=== PATIENT | female | born 1985 | race Caucasian/White ===

== ENCOUNTER → 2016-07-17 | Day surgery (SDC) | payer OTHER ==
[~2016-07-17] VITALS: Ht 170.1 cm; Wt 112.5 kg
[~2016-07-17] MED LIST: CLARITIN-D 12 H1 TAB PO; CLARITIN10 MG PO; FLONASE ALLERG9.9 ML NAS; IBU-8800 MG PO; KEFLEX500 MG PO; LIDEX0.05% T; MEDROL DOSEPAK4 MG PO; NAPROXEN SOD550 MG PO; NKHM; PERCOCET 325 MG1 TA5 PO; PREDNICOT20 MG PO; PREDNISONE10 MG PO; ROBITUSSIN DM 105 ML PO; TOBRADEX 0.1%-0.5 ML OPH; TRAMADOL HCL50 MG PO; ZITHROMAX Z PA250 MG PO; ZYRTEC10 MG PO
--- NOTE | ~2016-07-17 | O ---
[place], [place] OPERATIVE NOTE NAME: RASHMI MOTT UNIT #: [id number] ROOM: DOCTOR: CATRINA GARCÍA MD BIRTHDATE: [birth year] DOS: 07/17/2016 INDICATIONS: A 31-year-old patient who has presented with chief complaint of rectal bleed, undergoing investigation. FAMILY HISTORY: Noncontributory. PAST SURGICAL HISTORY: Tubal ligation. SOCIAL HISTORY: Nonsmoker, nonalcohol consumer. ALLERGIES: To no known medication. PROCEDURE: Today's procedure part of investigation is colonoscopy. PREMEDICATION: Versed and Diprivan. SCOPE: Olympus forward viewing colonoscope 10L video. REPORT: After putting the patient in the left lateral position and after application of lubricant to rectal pouch and digital examination, the scope was introduced. Thereafter, under direct visualization, advanced through the length of colon without difficulty. Base of the cecum explored, appendiceal orifice identified, and ileocecal valve was defined. Scope was gradually withdrawn from ascending, transverse, descending colon. The patient extubated, tolerated the procedure well. IMPRESSION: Normal colonoscopic examination. PLAN: High fiber fruit diet, activity ad iván. Patient was assured of no acute pathology. She can use Preparation H suppositories p.r.n. since her bleeding could have been superficial from rectum and to sooth up the mucosa and prevention of rebleed management. [place], [place] OPERATIVE NOTE NAME: RASHMI MOTT UNIT #: [id number] ROOM: DOCTOR: CATRINA GARCÍA MD BIRTHDATE: [birth year] CATRINA GARCÍA MD CM:OPRECORD:OPERATIVE NOTE [id number] CATRINA GARCÍA MD 07/17/16 1256 interface
[2016-07-17 10:00] VITALS: BP 112/65
[2016-07-17 10:15] VITALS: BP 101/68
[2016-07-17 10:35] VITALS: BP 105/72
== END | disposition home or self-care (01) ==
LOC: SDC 07-10 08:00
DX: K62.5 Hemorrhage of anus and rectum (principal); Z98.51 Tubal ligation status; Z87.891 Personal history of nicotine dependence

== ENCOUNTER 2016-10-07 12:16 | Emergency (ER) | payer OTHER ==
[~2016-10-07] VITALS: Wt 113.4 kg
[2016-10-07] MEDS ORDERED: KEFLEX500 M1 PO (13:09)
== END 2016-10-07 14:01 | disposition home or self-care (01) ==
LOC: ED 12:16
DX: S91.331A Puncture wound without foreign body, right foot, initial encounter (principal); W45.0XXA Nail entering through skin, initial encounter; Y93.89 Activity, other specified; Y92.89 Other specified places as the place of occurrence of the external cause; Y99.8 Other external cause status

== ENCOUNTER 2017-05-22 04:10 | Inpatient (IN) | payer OTHER ==
[~2017-05-22] VITALS: Ht 170.2 cm; Wt 114.8 kg
[2017-05-22] VITALS (11 sets, daily range): BP systolic 99–138; BP diastolic 52–92
--- NOTE | ~2017-05-22 | CON ---
[place], [place] REPORT OF CONSULTATION NAME: RASHMI MOTT [facility] CL[facility] #: [id number] UNIT #: [id number] ROOM: 403 DOCTOR: RAFI CORDERO MD BIRTHDATE: [birth year] DOS: 05/22/2017 REASON FOR CONSULTATION: Chest pain. HISTORY OF PRESENT ILLNESS: The patient is a 32-year-old woman who has never been documented as having coronary artery disease; however, she has had several years of intermittent chest pains. She states that the pains come and go without provocation. They are usually in the left side of her chest. Sometimes taking a deep breath makes them worse. She usually just rests and they go away. At about 2:00 this morning, she awakened from sleep with the pain in her left scapular area that radiated around to her left breast. The pain was severe and the patient was unable to relieve it despite taking a hot shower bath. She did note that the pain was worse when she lay down and felt better when she sat up. On her way to the emergency room, she began having dyspnea and shaking along with some nausea. She felt lightheaded and felt like she might pass out, although she did not lose consciousness. Her first electrocardiogram did show sinus tachycardia and nonspecific ST and T-wave changes. Subsequent electrocardiograms have been normal and serial cardiac biomarkers are normal thus far. The patient states that she has been evaluated for chest pain in the past. She tells me that did an echocardiogram and stress test on her years ago. These were both reportedly normal. Those reports are not currently available to me, however. PAST MEDICAL HISTORY: Includes: 1. Hyperlipidemia. 2. Vitamin D deficiency. 3. History of tubal ligation. MEDICATIONS PRIOR TO ADMISSION: None. ALLERGIES: The patient lists an allergy to TAPE, but states that she has no known drug allergies. REVIEW OF SYSTEMS: The patient denies diplopia, loss of vision. She did feel lightheaded prior to admission, but denied syncope. She denied focal weakness, but stated that her left arm felt "numb." She did have some nausea, but denied vomiting. She did have dyspnea, but denied cough or sputum production. She denied fevers, chills, sweats or recent weight change. She denied orthopnea or PND. She denied hemoptysis or hematemesis. She denied change in bowel or bladder habits and denied bleeding in her urine or bowels. She denied any skin rashes. She states that her ankles are occasionally mildly puffy, but denies sustained pedal edema. She denies any claudications. She denies heat or cold intolerance and denies polyuria or polydipsia. The remainder of the review of systems is negative except as noted above. FAMILY HISTORY: Her mother has diabetes and her father's history is unknown. SOCIAL HISTORY: The patient is a former smoker, but quit in her early 20s. She [place], [place] REPORT OF CONSULTATION NAME: RASHMI MOTT UNIT #: [id number] ROOM: 403 DOCTOR: RAFI CORDERO MD BIRTHDATE: [birth year] states that she "partied" as a teenager, but has not used illegal drugs in many years. She does admit that she is under considerable stress, but did not elaborate. PHYSICAL EXAMINATION: GENERAL: The patient is an overweight white female, awake, alert and oriented. VITAL SIGNS: Pulse is 60 and regular, blood pressure is 110/59, she is afebrile. She weighs 114.8 kg and has a body mass index of 39.7. HEENT: Normocephalic and atraumatic. Extraocular muscles are intact. Sclerae are clear. Pupils equal, round and react to light. The oral mucosa is moist. Tongue is midline. NECK: Supple. She has no jugular distention. Carotids are full without bruits. There are no neck or supraclavicular masses, no thyromegaly. LUNGS: Respirations are unlabored. Her chest is clear to auscultation and percussion. Taking a deep breath does reproduce some of her pains. She does have mild chest wall tenderness especially laterally and anteriorly, but states that this does not actually reproduce her presenting pains. She has no presacral edema. CARDIOVASCULAR: Her heart has a regular rhythm without murmurs, rubs or gallops. The PMI is not displaced. There is no precordial heave, lift or thrill. ABDOMEN: Obese, but otherwise benign, without masses, organomegaly, bruits, tenderness or rebound. EXTREMITIES: Showed no clubbing, cyanosis or edema. Peripheral pulses are easily palpated bilaterally. There were no palpable cords, skin rashes and no Homans sign. LABORATORY DATA: I reviewed her electrocardiograms. The first one did show sinus tachycardia and nonspecific ST and T-wave changes. Subsequent EKGs were normal. Her hemoglobin is 14.4, white count 10,600, platelet count 292,000. Sodium 139, potassium 3.1, chloride 102, CO2 of 24, BUN 17, creatinine 0.79, sugar was 102, magnesium 2.2. Troponin level has been normal times 2. Total cholesterol is 202, triglycerides 139, LDL 125, HDL 49. A serum test was negative. TSH is normal at 1.55. IMPRESSIONS: 1. Precordial chest pain. Thus far, the patient shows no signs of an acute coronary event. Her pains are at least partially reproducible and somewhat pleuritic. They are also positional and that they worsen when she lies down. 2. Abnormal electrocardiogram at presentation, the EKG does show sinus tachycardia and nonspecific ST and T-wave changes. The patient did also admit to symptoms at that time consistent with hyperventilation, so this may be the cause for the EKG changes. Ischemia has not been ruled out, but seems less likely. 3. Obesity. 4. Mixed hyperlipidemia. PLAN: The patient will be observed in the hospital today. We will complete her series of cardiac troponin measurements. An echocardiogram will be obtained to look for wall motion abnormalities and pericarditis. If that is all normal, [place], [place] REPORT OF CONSULTATION NAME: RASHMI MOTT UNIT #: [id number] ROOM: 403 DOCTOR: RAFI CORDERO MD BIRTHDATE: [birth year] then an exercise myocardial perfusion study will be done within the next 24 hours. I thank the hospitalist physicians for asking our advice regarding her care. RAFI CORDERO MD CM:CONSTR:REPORT OF CONSULTATION 0849 05/22/17 0913 interface
[~2017-05-22 04:10] MED LIST changes: +KEFLEX500 M1 PO
[2017-05-22 04:26] LABS: BASO # 0.1 10*3/uL (0.0-0.1); BASO % 0.7 % (0.0-1.0); EOS # 0.2 10*3/uL (0.0-0.4); EOS % 2.3 % (1.0-4.0); HEMATOCRIT 42.8 % (37.0-47.0); HEMOGLOBIN 14.4 g/dl (12.0-16.0); LYMPH # 4.2 10*3/uL (1.3-4.4); LYMPH % 39.5 % (27.0-41.0); MEAN CELL VOLUME 92.6 fl (81.0-99.0); MEAN CORPUSCULAR HGB 31.2 pg (27.0-31.0); MEAN CORPUSCULAR HGB CONC 33.6 g/dl (33.0-37.0); MEAN PLATELET VOLUME 9.1 fl (9.6-12.3); MONO # 0.9 10*3/uL (0.1-1.0); MONO % 8.6 % (3.0-9.0); NEUT # 5.1 10*3/uL (2.3-7.9); NEUT % 48.3 % (47.0-73.0); PLATELET COUNT AUTOMATED 292 10*3/uL (130-400); RED BLOOD COUNT 4.62 10*6/uL (4.10-5.10); RED CELL DISTRI WIDTH 11.7 % (0-14.5); WHITE BLOOD COUNT 10.6 10*3/uL (4.8-10.8)
[2017-05-22 04:38] LABS: ACT PARTIAL THROMBO TIME 25.8 SECONDS (20.8-31.5)
[2017-05-22 04:42] LABS: ALBUMIN 3.9 gm/dl (3.1-4.5); ALKALINE PHOSPHATASE 80 U/L (45-117); BUN 17 mg/dl (7-24); CHLORIDE 102 mmol/L (98-107); CREATININE 0.79 mg/dL (0.55-1.02); POTASSIUM 3.1 mmol/L (3.5-5.1); SGOT/AST 14 IU/L (3-35); SGPT/ALT 16 U/L (12-78); SODIUM 139 mmol/L (136-145); TOTAL PROTEIN 7.4 gm/dL (6.4-8.2)
[2017-05-22 04:45] LABS: TROPONIN I < 0.015 ng/ml (<0.045)
[2017-05-22 08:09] LABS: FREE T4 1.3 ng/dl (0.76-1.46); PHOSPHOROUS 3.1 mg/dL (2.5-4.9); THYROID STIM HORMONE (HS) 1.55 uIU/ml (0.358-4.75)
[2017-05-22 09:24] LABS: VITAMIN D, 25-HYDROXY 10.9 ng/mL (30-100)
[2017-05-22 10:33] LABS: BASO # 0.1 10*3/uL (0.0-0.1); EOS # 0.2 10*3/uL (0.0-0.4); EOS % 2.4 % (1.0-4.0); HEMATOCRIT 42.9 % (37.0-47.0); HEMOGLOBIN 14.5 g/dl (12.0-16.0); LYMPH # 2.5 10*3/uL (1.3-4.4); LYMPH % 31.8 % (27.0-41.0); MEAN CELL VOLUME 93.3 fl (81.0-99.0); MEAN CORPUSCULAR HGB 31.5 pg (27.0-31.0); MEAN CORPUSCULAR HGB CONC 33.8 g/dl (33.0-37.0); MEAN PLATELET VOLUME 9.6 fl (9.6-12.3); MONO # 0.6 10*3/uL (0.1-1.0); MONO % 7.9 % (3.0-9.0); NEUT # 4.5 10*3/uL (2.3-7.9); NEUT % 56.1 % (47.0-73.0); PLATELET COUNT AUTOMATED 300 10*3/uL (130-400); RED CELL DISTRI WIDTH 11.6 % (0-14.5); WHITE BLOOD COUNT 7.9 10*3/uL (4.8-10.8)
[2017-05-22 11:00] LABS: BUN 12 mg/dl (7-24); CHLORIDE 108 mmol/L (98-107); CREATININE 0.77 mg/dL (0.55-1.02); SODIUM 142 mmol/L (136-145)
[2017-05-22 11:01] LABS: POTASSIUM 4.1 mmol/L (3.5-5.1)
[2017-05-23] VITALS: BP 102/50
[2017-05-23 07:03] LABS: BASO # 0.1 10*3/uL (0.0-0.1); BASO % 0.9 % (0.0-1.0); EOS # 0.2 10*3/uL (0.0-0.4); EOS % 2.4 % (1.0-4.0); HEMATOCRIT 41.3 % (37.0-47.0); HEMOGLOBIN 13.7 g/dl (12.0-16.0); LYMPH # 2.6 10*3/uL (1.3-4.4); LYMPH % 37.1 % (27.0-41.0); MEAN CELL VOLUME 95.4 fl (81.0-99.0); MEAN CORPUSCULAR HGB 31.6 pg (27.0-31.0); MEAN CORPUSCULAR HGB CONC 33.2 g/dl (33.0-37.0); MEAN PLATELET VOLUME 9.4 fl (9.6-12.3); MONO # 0.6 10*3/uL (0.1-1.0); MONO % 8.7 % (3.0-9.0); NEUT # 3.5 10*3/uL (2.3-7.9); PLATELET COUNT AUTOMATED 272 10*3/uL (130-400); RED BLOOD COUNT 4.33 10*6/uL (4.10-5.10); RED CELL DISTRI WIDTH 11.8 % (0-14.5)
[2017-05-23 07:28] LABS: CHLORIDE 104 mmol/L (98-107); POTASSIUM 4.2 mmol/L (3.5-5.1); SODIUM 139 mmol/L (136-145)
[2017-05-23 07:37] LABS: BUN 16 mg/dl (7-24); CREATININE 0.76 mg/dL (0.55-1.02)
[2017-05-23 08:00] VITALS: BP 94/51
[2017-05-23 08:17] LABS: BILIRUBIN NEGATIVE (NEGATIVE); BLOOD NEGATIVE (NEGATIVE); CLARITY CLEAR (CLEAR); COLOR YELLOW (YELLOW); GLUCOSE NEGATIVE (NEGATIVE); KETONE NEGATIVE (NEGATIVE); LEUKO ESTERASE NEGATIVE (NEGATIVE); NITRITE NEGATIVE (NEGATIVE); PH 5.5 (5.0-9.0); SPECIFIC GRAVITY 1.025 (1.005-1.030); UROBILINOGEN 0.2 E.U./dl (0.2-1.0)
[2017-05-23] MEDS ORDERED: VITAMIN D50000 UNIT PO (14:59)
== END 2017-05-23 16:07 | disposition home or self-care (01) | DRG 313 ==
LOC: ED 04:10 → EDHOLD 05:08 → 4E 05:08
PROVIDERS: Internal Medicine; Internal Medicine Nephrology; Student in an Organized Health Care Education/Training Program
PROC: 4A02XM4 Measurement of Cardiac Total Activity, External Approach (ICD-10-PCS; principal; 2017-05-23)
DX: R07.89 Other chest pain (principal); R65.10 Systemic inflammatory response syndrome (SIRS) of non-infectious origin without acute organ dysfunction; E83.41 Hypermagnesemia; M94.0 Chondrocostal junction syndrome [Tietze]; E87.6 Hypokalemia; E78.00 Pure hypercholesterolemia, unspecified; E55.9 Vitamin D deficiency, unspecified; K64.9 Unspecified hemorrhoids; E66.9 Obesity, unspecified; E78.2 Mixed hyperlipidemia; R73.9 Hyperglycemia, unspecified; R39.15 Urgency of urination; Z88.8 Allergy status to other drugs, medicaments and biological substances; Z79.899 Other long term (current) drug therapy; Z87.891 Personal history of nicotine dependence; Z98.51 Tubal ligation status; Z83.3 Family history of diabetes mellitus; Z68.39 Body mass index [BMI] 39.0-39.9, adult

== ENCOUNTER → 2017-08-20 | Outpatient (CLI) | payer OTHER ==
[~2017-08-20] MED LIST changes: +VITAMIN D50000 UNIT PO
== END | disposition home or self-care (01) ==
LOC: MAMMO 11:30
DX: N63.20 Unspecified lump in the left breast, unspecified quadrant (principal); N64.4 Mastodynia

== ENCOUNTER → 2017-09-02 | Outpatient (CLI) | payer OTHER | END | disposition home or self-care (01) | LOC: US 08-29 10:30 | DX: N63.20 Unspecified lump in the left breast, unspecified quadrant (principal); N64.4 Mastodynia ==

== ENCOUNTER 2018-10-27 14:18 | Emergency (ER) | payer OTHER ==
[~2018-10-27] VITALS: Ht 170.1 cm; Wt 119.3 kg
--- NOTE | ~2018-10-27 | EKG ---
[place], [place] ELECTROCARDIOGRAM REPORT NAME: RASHMI MOTT UNIT #: [id number] ROOM: DOCTOR: EPIPHANY DRAFT REPORT BIRTHDATE: [birth year] [facility] Test Date: 2018-10-27 Test Time: 16:54:56 Pat Name: RASHMI MOTT Department: ED Room: 20 Gender: F [place] Magistrate: Noemy Smith : 1985 Requested By: HENRIETTA PRESSLEY Order Number: [id number] Reading MD: Suman Patel MD Measurements Intervals [place] Rate: 65 P: 3 ID: 179 QRS: 37 QRSD: 99 T: 0 QT: 412 QTc: 429 Interpretive Statements Sinus rhythm Nonspecific T wave changes Electronically Signed On 10-28-2018 8:00:11 PDT by Suman Patel MD CM:EKGRPT:ELECTROCARDIOGRAM REPORT [id number] HENRIETTA LAWSON DRAFT REPORT HENRIETTA PRESSLEY DO
--- NOTE | ~2018-10-27 | EKG ---
[place], [place] ELECTROCARDIOGRAM REPORT NAME: RASHMI MOTT UNIT #: [id number] ROOM: DOCTOR: SUSHIL DRAFT REPORT BIRTHDATE: [birth year] [facility] Test Date: 2018-10-27 Test Time: 14:31:08 Pat Name: RASHMI MOTT Department: Room: Gender: F Fleecer: : 1985 Requested By: HENRIETTA PRESSLEY Order Number: [id number] Reading MD: Suman Patel MD Measurements Intervals [place] Rate: 73 P: 36 KS: 166 QRS: 51 QRSD: 98 T: -5 QT: 389 QTc: 429 Interpretive Statements Sinus rhythm Borderline T wave abnormalities Electronically Signed On 10-28-2018 5:06:51 PDT by Suman Patel MD CM:EKGRPT:ELECTROCARDIOGRAM REPORT [id number] HENRIETTA LAWSON DRAFT REPORT HENRIETTA PRESSLEY DO
[2018-10-27 14:51] LABS: BASO # 0.1 10*3/uL (0.0-0.1); BASO % 0.8 % (0.0-1.0); EOS # 0.2 10*3/uL (0.0-0.4); HEMATOCRIT 39.8 % (37.0-47.0); HEMOGLOBIN 13.5 g/dl (12.0-16.0); LYMPH % 30.2 % (27.0-41.0); MEAN CELL VOLUME 95.2 fl (81.0-99.0); MEAN CORPUSCULAR HGB 32.3 pg (27.0-31.0); MEAN CORPUSCULAR HGB CONC 33.9 g/dl (33.0-37.0); MEAN PLATELET VOLUME 9.3 fl (9.6-12.3); MONO # 0.8 10*3/uL (0.1-1.0); MONO % 8.2 % (3.0-9.0); NEUT # 5.7 10*3/uL (2.3-7.9); NEUT % 57.6 % (47.0-73.0); PLATELET COUNT AUTOMATED 322 10*3/uL (130-400); RED BLOOD COUNT 4.18 10*6/uL (4.10-5.10); RED CELL DISTRI WIDTH 11.8 % (0-14.5); WHITE BLOOD COUNT 9.9 10*3/uL (4.8-10.8)
[2018-10-27 15:06] LABS: ALBUMIN 3.8 gm/dl (3.1-4.5); ALKALINE PHOSPHATASE 77 U/L (45-117); BUN 11 mg/dl (7-24); CHLORIDE 106 mmol/L (98-107); CREATININE 0.77 mg/dL (0.55-1.02); POTASSIUM 3.8 mmol/L (3.5-5.1); SGOT/AST 14 IU/L (3-35); SGPT/ALT 27 U/L (12-78); SODIUM 139 mmol/L (136-145); TOTAL PROTEIN 7.3 gm/dL (6.4-8.2)
[2018-10-27 15:11] LABS: TROPONIN I < 0.015 ng/ml (<0.045)
[2018-10-27 15:31] LABS: ACT PARTIAL THROMBO TIME 25.8 SECONDS (20.0-32.1); INTERNATIONAL NORM RATIO 0.9 (2.0-3.5)
== END 2018-10-27 18:31 | disposition home or self-care (01) ==
LOC: ED 14:18
PROVIDERS: Emergency Medicine
DX: R07.1 Chest pain on breathing (principal); R51 Headache; E66.9 Obesity, unspecified; Z91.048 Other nonmedicinal substance allergy status; Z68.30 Body mass index [BMI] 30.0-30.9, adult; Z79.899 Other long term (current) drug therapy; Z87.891 Personal history of nicotine dependence

== ENCOUNTER 2019-03-07 17:13 | Emergency (ER) | payer OTHER ==
[~2019-03-07] VITALS: Ht 170.1 cm; Wt 117.9 kg
[2019-03-07 18:00] LABS: BASO # 0.1 10*3/uL (0.0-0.1); BASO % 0.7 % (0.0-1.0); EOS # 0.2 10*3/uL (0.0-0.4); EOS % 1.9 % (1.0-4.0); HEMATOCRIT 44.1 % (37.0-47.0); HEMOGLOBIN 14.8 g/dl (12.0-16.0); LYMPH # 3.1 10*3/uL (1.3-4.4); LYMPH % 29.5 % (27.0-41.0); MEAN CELL VOLUME 95.7 fl (81.0-99.0); MEAN CORPUSCULAR HGB 32.1 pg (27.0-31.0); MEAN CORPUSCULAR HGB CONC 33.6 g/dl (33.0-37.0); MEAN PLATELET VOLUME 9.2 fl (9.6-12.3); MONO # 0.8 10*3/uL (0.1-1.0); MONO % 7.5 % (3.0-9.0); NEUT # 6.3 10*3/uL (2.3-7.9); NEUT % 59.6 % (47.0-73.0); PLATELET COUNT AUTOMATED 325 10*3/uL (130-400); RED BLOOD COUNT 4.61 10*6/uL (4.10-5.10); RED CELL DISTRI WIDTH 11.8 % (0-14.5); WHITE BLOOD COUNT 10.6 10*3/uL (4.8-10.8)
[2019-03-07 18:16] LABS: ALKALINE PHOSPHATASE 80 U/L (45-117); BUN 16 mg/dl (7-24); CHLORIDE 106 mmol/L (98-107); CREATININE 0.87 mg/dL (0.55-1.02); LIPASE 102 U/L (73-393); POTASSIUM 3.6 mmol/L (3.5-5.1); SGOT/AST 17 IU/L (3-35); SGPT/ALT 26 U/L (12-78); SODIUM 142 mmol/L (136-145); TOTAL PROTEIN 7.8 gm/dL (6.4-8.2)
[2019-03-07 18:17] LABS: TROPONIN I < 0.015 ng/ml (<0.045)
[2019-03-07 18:54] LABS: BILIRUBIN NEGATIVE (NEGATIVE); BLOOD NEGATIVE (NEGATIVE); CLARITY CLEAR (CLEAR); COLOR YELLOW (YELLOW); GLUCOSE NEGATIVE (NEGATIVE); KETONE NEGATIVE (NEGATIVE); LEUKO ESTERASE NEGATIVE (NEGATIVE); NITRITE NEGATIVE (NEGATIVE); PH 6.5 (5.0-9.0)
[2019-03-07] MEDS ORDERED: ROBAXIN-750750 MG PO (19:06)
[2019-03-07] MEDS ORDERED: MEDROL DOSEPAK4 MG PO (19:06)
== END 2019-03-07 19:09 | disposition home or self-care (01) ==
LOC: ED 17:13
PROVIDERS: Physician Assistant
DX: R10.11 Right upper quadrant pain (principal); M54.6 Pain in thoracic spine; G89.29 Other chronic pain; R35.0 Frequency of micturition; K21.9 Gastro-esophageal reflux disease without esophagitis; Z91.048 Other nonmedicinal substance allergy status; Z87.891 Personal history of nicotine dependence

== ENCOUNTER 2019-05-21 20:48 | Emergency (ER) | payer OTHER ==
[~2019-05-21] VITALS: Ht 170.1 cm; Wt 120.2 kg
[~2019-05-21 20:48] MED LIST changes: +ROBAXIN-750750 MG PO
[2019-05-21 21:59] LABS: BASO # 0.1 10*3/uL (0.0-0.1); BASO % 0.7 % (0.0-1.0); EOS # 0.2 10*3/uL (0.0-0.4); EOS % 2.2 % (1.0-4.0); HEMATOCRIT 38.6 % (37.0-47.0); HEMOGLOBIN 12.6 g/dl (12.0-16.0); LYMPH % 37.2 % (27.0-41.0); MEAN CORPUSCULAR HGB 31.7 pg (27.0-31.0); MEAN CORPUSCULAR HGB CONC 32.6 g/dl (33.0-37.0); MEAN PLATELET VOLUME 9.2 fl (9.6-12.3); MONO # 0.9 10*3/uL (0.1-1.0); MONO % 8.7 % (3.0-9.0); NEUT # 5.4 10*3/uL (2.3-7.9); NEUT % 50.4 % (47.0-73.0); PLATELET COUNT AUTOMATED 282 10*3/uL (130-400); RED BLOOD COUNT 3.98 10*6/uL (4.10-5.10); RED CELL DISTRI WIDTH 11.7 % (0-14.5); WHITE BLOOD COUNT 10.6 10*3/uL (4.8-10.8)
[2019-05-21 22:16] LABS: ALBUMIN 3.3 gm/dl (3.1-4.5); ALKALINE PHOSPHATASE 70 U/L (45-117); BUN 16 mg/dl (7-24); CHLORIDE 109 mmol/L (98-107); CREATININE 0.72 mg/dL (0.55-1.02); POTASSIUM 3.8 mmol/L (3.5-5.1); SGOT/AST 11 IU/L (3-35); SGPT/ALT 17 U/L (12-78); SODIUM 139 mmol/L (136-145); TOTAL PROTEIN 6.4 gm/dL (6.4-8.2)
[2019-05-21 22:18] LABS: B-hCG (QUALITATIVE) NEGATIVE (NEGATIVE)
[2019-05-21 22:38] LABS: BILIRUBIN NEGATIVE (NEGATIVE); BLOOD 2+ (NEGATIVE); CLARITY CLEAR (CLEAR); COLOR YELLOW (YELLOW); GLUCOSE NEGATIVE (NEGATIVE); KETONE NEGATIVE (NEGATIVE); NITRITE NEGATIVE (NEGATIVE); PH 6.5 (5.0-9.0); UROBILINOGEN 0.2 E.U./dl (0.2-1.0)
[2019-05-21 22:39] LABS: LEUKO ESTERASE NEGATIVE (NEGATIVE)
[2019-05-21 22:44] LABS: BACTERIA 1+; RBC 16-20 rbc/hpf (0-2)
[2019-05-21] MEDS ORDERED: KEFLEX500 M1 PO (23:19)
== END 2019-05-21 23:16 | disposition home or self-care (01) ==
LOC: ED 20:48
PROVIDERS: Nurse Practitioner
DX: N92.0 Excessive and frequent menstruation with regular cycle (principal); N39.0 Urinary tract infection, site not specified; Z88.8 Allergy status to other drugs, medicaments and biological substances; Z79.899 Other long term (current) drug therapy

== ENCOUNTER 2020-03-06 18:38 | Emergency (ER) | payer OTHER ==
[~2020-03-06] VITALS: Wt 127.0 kg
[2020-03-06 21:35] LABS: BASO # 0.1 10*3/uL (0.0-0.1); BASO % 0.7 % (0.0-1.0); EOS # 0.2 10*3/uL (0.0-0.4); EOS % 2.1 % (1.0-4.0); HEMATOCRIT 40.6 % (37.0-47.0); LYMPH # 3.2 10*3/uL (1.3-4.4); LYMPH % 28.5 % (27.0-41.0); MEAN CELL VOLUME 94.4 fl (81.0-99.0); MEAN CORPUSCULAR HGB 30.5 pg (27.0-31.0); MEAN CORPUSCULAR HGB CONC 32.3 g/dl (33.0-37.0); MEAN PLATELET VOLUME 9.3 fl (9.6-12.3); MONO # 0.8 10*3/uL (0.1-1.0); MONO % 6.8 % (3.0-9.0); NEUT # 6.8 10*3/uL (2.3-7.9); PLATELET COUNT AUTOMATED 329 10*3/uL (130-400); RED CELL DISTRI WIDTH 11.8 % (0-14.5); WHITE BLOOD COUNT 11.1 10*3/uL (4.8-10.8)
[2020-03-06 21:51] LABS: ALBUMIN 3.5 gm/dl (3.1-4.5); ALKALINE PHOSPHATASE 89 U/L (45-117); BUN 15 mg/dl (7-24); CHLORIDE 107 mmol/L (98-107); CREATININE 0.92 mg/dL (0.55-1.02); POTASSIUM 3.7 mmol/L (3.5-5.1); SGOT/AST 15 IU/L (3-35); SGPT/ALT 20 U/L (12-78); SODIUM 139 mmol/L (136-145); TOTAL PROTEIN 7.3 gm/dL (6.4-8.2)
[2020-03-06] MEDS ORDERED: Motrin,Rufen800 MG PO (22:41)
[2020-03-06] MEDS ORDERED: PREDNISONE50 MG PO (22:41)
== END 2020-03-06 23:00 | disposition home or self-care (01) ==
LOC: ED 18:38
PROVIDERS: Nurse Practitioner
DX: M50.20 Other cervical disc displacement, unspecified cervical region (principal); Z20.828 Contact with and (suspected) exposure to other viral communicable diseases; K21.9 Gastro-esophageal reflux disease without esophagitis; Z87.891 Personal history of nicotine dependence

== ENCOUNTER 2020-11-27 22:48 | Emergency (ER) | payer OTHER ==
[~2020-11-27] VITALS: Ht 177.8 cm; Wt 95.3 kg
[~2020-11-27 22:48] MED LIST changes: +Motrin,Rufen800 MG PO; +PREDNISONE50 MG PO
[2020-11-28 01:29] LABS: BASO % 0.5 % (0.0-1.0); EOS # 0.1 10*3/uL (0.0-0.4); EOS % 1.4 % (1.0-4.0); HEMATOCRIT 41.4 % (37.0-47.0); LYMPH # 0.4 10*3/uL (1.3-4.4); LYMPH % 6.6 % (27.0-41.0); MEAN CELL VOLUME 94.5 fl (81.0-99.0); MEAN CORPUSCULAR HGB 31.1 pg (27.0-31.0); MEAN CORPUSCULAR HGB CONC 32.9 g/dl (33.0-37.0); MEAN PLATELET VOLUME 9.4 fl (9.6-12.3); MONO # 0.7 10*3/uL (0.1-1.0); NEUT # 5.3 10*3/uL (2.3-7.9); NEUT % 79.6 % (47.0-73.0); PLATELET COUNT AUTOMATED 237 10*3/uL (130-400); RED BLOOD COUNT 4.38 10*6/uL (4.10-5.10); RED CELL DISTRI WIDTH 12.1 % (0-14.5); WHITE BLOOD COUNT 6.6 10*3/uL (4.8-10.8)
[2020-11-28 01:43] LABS: ALBUMIN 3.7 gm/dl (3.1-4.5); ALKALINE PHOSPHATASE 81 U/L (45-117); BUN 9 mg/dl (7-24); CHLORIDE 109 mmol/L (98-107); POTASSIUM 3.6 mmol/L (3.5-5.1); SGOT/AST 12 IU/L (3-35); SGPT/ALT 21 U/L (12-78); SODIUM 138 mmol/L (136-145); TOTAL PROTEIN 7.1 gm/dL (6.4-8.2)
== END 2020-11-28 02:12 | disposition home or self-care (01) ==
LOC: ED 22:48
PROVIDERS: Internal Medicine
DX: U07.1 COVID-19 (principal); Z87.891 Personal history of nicotine dependence

== ENCOUNTER 2021-06-10 21:35 | Emergency (ER) | payer OTHER ==
[2021-06-10 22:01] LABS: BASO # 0.1 10*3/uL (0.0-0.1); BASO % 0.6 % (0.0-1.0); EOS # 0.2 10*3/uL (0.0-0.4); HEMATOCRIT 41.2 % (37.0-47.0); LYMPH # 3.4 10*3/uL (1.3-4.4); LYMPH % 31.7 % (27.0-41.0); MEAN CORPUSCULAR HGB 30.8 pg (27.0-31.0); MEAN CORPUSCULAR HGB CONC 33.5 g/dl (33.0-37.0); MEAN PLATELET VOLUME 8.8 fl (9.6-12.3); MONO # 0.8 10*3/uL (0.1-1.0); MONO % 7.2 % (3.0-9.0); NEUT # 6.2 10*3/uL (2.3-7.9); NEUT % 57.8 % (47.0-73.0); PLATELET COUNT AUTOMATED 311 10*3/uL (130-400); RED BLOOD COUNT 4.48 10*6/uL (4.10-5.10); RED CELL DISTRI WIDTH 11.9 % (0-14.5); WHITE BLOOD COUNT 10.7 10*3/uL (4.8-10.8)
[2021-06-10 22:19] LABS: ALKALINE PHOSPHATASE 78 U/L (45-117); BUN 12 mg/dl (7-24); CHLORIDE 108 mmol/L (98-107); CPK 78 U/L (26-192); CREATININE 0.85 mg/dL (0.55-1.02); LIPASE 96 U/L (73-393); POTASSIUM 3.5 mmol/L (3.5-5.1); SGOT/AST 13 IU/L (3-35); SGPT/ALT 21 U/L (12-78); SODIUM 141 mmol/L (136-145)
[2021-06-10 22:20] LABS: CKMB < 1.0 ng/ml (0.5-3.6)
== END 2021-06-10 23:04 | disposition home or self-care (01) ==
LOC: ED 21:35
PROVIDERS: Emergency Medicine
DX: R07.9 Chest pain, unspecified (principal); Z98.51 Tubal ligation status; Z87.891 Personal history of nicotine dependence

== ENCOUNTER → 2022-04-11 | Outpatient (CLI) | payer OTHER | END | disposition home or self-care (01) | LOC: MRI 14:00 | PROVIDERS: ATTEND Nurse Practitioner | DX: M47.812 Spondylosis without myelopathy or radiculopathy, cervical region (principal); M50.222 Other cervical disc displacement at C5-C6 level; M50.223 Other cervical disc displacement at C6-C7 level; M43 Other deforming dorsopathies ==

== ENCOUNTER 2022-08-30 08:00 | Emergency (ER) | payer OTHER ==
[~2022-08-30] VITALS: Ht 170.1 cm; Wt 136.1 kg
[2022-08-30 08:39] LABS: BILIRUBIN Negative (Negative); BLOOD Negative (Negative); CLARITY Clear (Clear); COLOR Yellow (Yellow); GLUCOSE Negative (Negative); KETONE Negative (Negative); LEUKO ESTERASE Negative (Negative); NITRITE Negative (Negative); SPECIFIC GRAVITY <= 1.005 (1.001-1.030); UROBILINOGEN 0.2 E.U./dl (0.0-1.0)
[2022-08-30 09:01] LABS: YEAST TRACE
[2022-08-30] MEDS ORDERED: PREDNISONE50 MG PO (09:10)
[2022-08-30] MEDS ORDERED: CYCLOBENZAPRINE10 MG PO (09:10)
== END 2022-08-30 13:11 | disposition home or self-care (01) ==
LOC: ED 08:00
PROVIDERS: Emergency Medicine
DX: M54.41 Lumbago with sciatica, right side (principal); Z91.048 Other nonmedicinal substance allergy status; Z87.891 Personal history of nicotine dependence

== ENCOUNTER 2023-01-10 17:43 | Emergency (ER) | payer OTHER ==
[~2023-01-10] VITALS: Ht 170.1 cm; Wt 136.1 kg
[~2023-01-10 17:43] MED LIST changes: +CYCLOBENZAPRINE10 MG PO
[2023-01-10 18:57] LABS: BILIRUBIN Negative (Negative); BLOOD Negative (Negative); CLARITY Clear (Clear); COLOR Yellow (Yellow); GLUCOSE Negative (Negative); KETONE Negative (Negative); LEUKO ESTERASE Negative (Negative); NITRITE Negative (Negative); PH 5.5 (4.5-8.0); SPECIFIC GRAVITY 1.015 (1.001-1.030); UROBILINOGEN 0.2 E.U./dl (0.0-1.0)
[2023-01-10 18:57] LABS: BASO # 0.1 10*3/uL (0.0-0.1); BASO % 0.7 % (0.0-1.0); EOS # 0.2 10*3/uL (0.0-0.4); EOS % 1.8 % (1.0-4.0); HEMATOCRIT 40.3 % (37.0-47.0); LYMPH % 30.5 % (27.0-41.0); MEAN CELL VOLUME 92.2 fl (81.0-99.0); MEAN CORPUSCULAR HGB 31.6 pg (27.0-31.0); MEAN CORPUSCULAR HGB CONC 34.2 g/dl (33.0-37.0); MEAN PLATELET VOLUME 9.1 fl (9.6-12.3); MONO # 0.8 10*3/uL (0.1-1.0); NEUT # 5.7 10*3/uL (2.3-7.9); NEUT % 58.4 % (47.0-73.0); PLATELET COUNT AUTOMATED 303 10*3/uL (130-400); RED BLOOD COUNT 4.37 10*6/uL (4.10-5.10); RED CELL DISTRI WIDTH 11.7 % (0-14.5); WHITE BLOOD COUNT 9.8 10*3/uL (4.8-10.8)
[2023-01-10 19:06] LABS: BACTERIA TRACE
[2023-01-10 19:16] LABS: ALKALINE PHOSPHATASE 81 U/L (46-116); BUN 10 mg/dl (9-23); CHLORIDE 105 mmol/L (98-107); LIPASE 29 U/L (12-53); POTASSIUM 3.8 mmol/L (3.4-5.1); SGPT/ALT 14 U/L (5-49); TOTAL PROTEIN 6.5 gm/dL (6.0-8.0)
== END 2023-01-10 19:48 | disposition home or self-care (01) ==
LOC: ED 17:43
PROVIDERS: Nurse Practitioner Family
DX: M54.50 Low back pain, unspecified (principal); Z88.8 Allergy status to other drugs, medicaments and biological substances; E78.00 Pure hypercholesterolemia, unspecified; Z86.16 Personal history of COVID-19; R73.9 Hyperglycemia, unspecified; E83.41 Hypermagnesemia; E87.6 Hypokalemia; Z98.890 Other specified postprocedural states; Z98.51 Tubal ligation status; Z87.891 Personal history of nicotine dependence

== ENCOUNTER 2023-03-01 14:38 | Emergency (ER) | payer OTHER ==
[~2023-03-01] VITALS: Ht 170.1 cm; Wt 136.1 kg
[2023-03-01] MEDS ORDERED: AMITRIPTYLINE50 MG PO (15:18)
[2023-03-01] MEDS ORDERED: ROSUVASTATIN CA20 MG PO (15:19)
[2023-03-01] MEDS ORDERED: ORAJEL 4X TOOTHA7 GM MM (15:35)
[2023-03-01] MEDS ORDERED: VALTREX500 MG PO (15:35)
== END 2023-03-01 15:40 | disposition home or self-care (01) ==
LOC: ED 14:38
DX: K12.0 Recurrent oral aphthae (principal); Z98.51 Tubal ligation status; Z98.890 Other specified postprocedural states; Z87.891 Personal history of nicotine dependence

== ENCOUNTER → 2023-03-28 | Outpatient (CLI) | payer OTHER ==
[~2023-03-28] MED LIST changes: +AMITRIPTYLINE50 MG PO; +ORAJEL 4X TOOTHA7 GM MM; +ROSUVASTATIN CA20 MG PO; +VALTREX500 MG PO
== END | disposition home or self-care (01) ==
LOC: US 09:30
PROVIDERS: ATTEND Nurse Practitioner
DX: M79.661 Pain in right lower leg (principal); R09.89 Other specified symptoms and signs involving the circulatory and respiratory systems

== ENCOUNTER → 2023-04-04 | Outpatient (CLI) | payer OTHER | END | disposition home or self-care (01) | LOC: US 12:42 | PROVIDERS: ATTEND Nurse Practitioner | DX: N88.8 Other specified noninflammatory disorders of cervix uteri (principal); R22.41 Localized swelling, mass and lump, right lower limb ==

== ENCOUNTER → 2023-07-10 | Outpatient (CLI) | payer OTHER | END | disposition home or self-care (01) | LOC: CT 00:08 | PROVIDERS: ATTEND Nurse Practitioner | DX: R26.81 Unsteadiness on feet (principal) ==

== ENCOUNTER → 2024-08-23 | Outpatient (CLI) | payer OTHER | END | disposition home or self-care (01) | LOC: RAD 14:45 | PROVIDERS: ATTEND Nurse Practitioner | DX: S92.911A Unspecified fracture of right toe(s), initial encounter for closed fracture (principal); S99.921A Unspecified injury of right foot, initial encounter; M79.674 Pain in right toe(s); X58.XXXA Exposure to other specified factors, initial encounter; Y93.9 Activity, unspecified; Y92.89 Other specified places as the place of occurrence of the external cause; Y99.8 Other external cause status ==

== ENCOUNTER 2024-12-31 01:09 | Emergency (ER) | payer OTHER ==
[~2024-12-31] VITALS: Ht 170.2 cm; Wt 126.1 kg
[2024-12-31] MEDS ORDERED: FAMOTIDINE40 MG PO (01:30)
[2024-12-31] MEDS ORDERED: METOPROLOL SUCC25 M2 PO (01:30)
[2024-12-31] MEDS ORDERED: FLUTICASONE-SA1 EAC3 INH (01:32)
[2024-12-31] MEDS ORDERED: NITROGLYCERIN0.4 MG SL (01:32)
[2024-12-31] MEDS ORDERED: MONTELUKAST SOD10 MG PO (01:33)
[2024-12-31 01:35] LABS: BASO # 0.1 10*3/uL (0.0-0.1); BASO % 0.9 % (0.0-1.0); EOS # 0.2 10*3/uL (0.0-0.4); EOS % 1.5 % (1.0-4.0); MEAN CELL VOLUME 96.2 fl (81.0-99.0); MEAN CORPUSCULAR HGB 31.6 pg (27.0-31.0); MEAN PLATELET VOLUME 9.3 fl (9.6-12.3); MONO # 0.8 10*3/uL (0.1-1.0); MONO % 7.0 % (3.0-9.0); NEUT # 7.8 10*3/uL (2.3-7.9); NEUT % 66.8 % (47.0-73.0); NUCLEATED RED BLOOD CELL 0.0 % (0.0-0.0); NUCLEATED RED BLOOD CELL 0.0 10*3/uL (0.0-0.0); PLATELET COUNT AUTOMATED 293 10*3/uL (130-400); RED CELL DISTRI WIDTH 11.9 % (0-14.5)
[2024-12-31 02:29] LABS: BUN 11 mg/dl (9-23)
== END 2024-12-31 04:21 | disposition home or self-care (01) ==
LOC: ED 01:09
PROVIDERS: Internal Medicine
DX: R07.89 Other chest pain (principal); J44.9 Chronic obstructive pulmonary disease, unspecified; R20.0 Anesthesia of skin; E78.5 Hyperlipidemia, unspecified; Z87.891 Personal history of nicotine dependence; Z98.51 Tubal ligation status; Z88.1 Allergy status to other antibiotic agents